=== PATIENT | female | born 1980 | race Two or more races ===

== ENCOUNTER 2018-08-13 12:19 | Emergency (ER) | payer MEDICAID ==
[~2018-08-13] VITALS: Ht 167.6 cm; Wt 80.0 kg
[2018-08-13] MEDS ORDERED: OXYCODONE HCL/ACETAMINOPHEN 5/325MG TABLET PO ONE (13:00)
[2018-08-13] MEDS ORDERED: ONDANSETRON HCL 4MG/2ML INJ IV ONE (13:00)
[2018-08-13 14:43] VITALS: BP 122/87
[2018-08-13] MEDS ORDERED: METOCLOPRAMIDE HCL 10MG/2ML VIAL IV ONE (14:45)
== END 2018-08-13 16:17 | disposition home or self-care (01) ==
LOC: ER 12:19
DX: S09.90XA Unspecified injury of head, initial encounter (principal); F07.81 Postconcussional syndrome; F17.200 Nicotine dependence, unspecified, uncomplicated; W01.0XXA Fall on same level from slipping, tripping and stumbling without subsequent striking against object, initial encounter; Y93.89 Activity, other specified; Y92.89 Other specified places as the place of occurrence of the external cause; Y99.8 Other external cause status
CPT/HCPCS: 70450; 96374; 96375; 99284; J2405; J2765

== ENCOUNTER 2021-04-30 19:38 | Inpatient (IN) | payer MEDICAID, OTHER ==
[~2021-04-30] VITALS: Ht 154.9 cm; Wt 63.5 kg
[2021-04-30] MEDS ORDERED: SODIUM CHLORIDE 0.9% 1,000 ML IV ONE (22:45)
[2021-04-30 23:15] LABS: BASOPHILS % 1.7 % (0.0-2.0); EOSINOPHILS % 2.2 % (0.0-5.0); LYMPHOCYTES % 33.6 % (20.0-50.0); MEAN CORPUSCULAR HEMOGLOBIN 28.1 pg (28.0-32.0); MEAN CORPUSCULAR VOLUME 82.9 fL (81.0-99.0); MEAN PLATELET VOLUME 6.7 fl (7.4-10.4); MONOCYTES % 6.5 % (2.0-8.0); PLATELET 570 x1000/uL (130-400); RED CELL DISTRIBUTION WIDTH 14.1 % (11.6-14.6)
[2021-04-30 23:19] LABS: CHLORIDE 106 mEq/L (98-107)
[2021-04-30 23:29] LABS: B-HCG QUANTITATIVE < 1 mIU/mL (<3); HCG SCREEN NEGATIVE
[2021-04-30 23:37] LABS: HEMOGLOBIN. 6.7 g/dL (12.0-16.0)
[2021-04-30 23:38] LABS: HEMATOCRIT. 19.9 % (36.0-48.0)
[2021-05-01] VITALS (15 sets, daily range): BP systolic 94–123; BP diastolic 34–62
[2021-05-01] MEDS ORDERED: CEFTRIAXONE 1 G PREMIX 50 ML IV ONE (02:45)
[2021-05-01] MEDS ORDERED: METRONIDAZOLE 500 MG PREMIX 100 ML IV ONE (02:45)
[2021-05-01] MEDS ORDERED: AZITHROMYCIN 500 MG TABLET PO ONE (02:45)
[2021-05-01 06:57] LABS: CLARITY URINE TURBID (CLEAR); COLOR URINE RED (YELLOW); KETONES URINE NEGATIVE (NEGATIVE); LEUKOCYTE ESTERASE URINE 2+ (NEGATIVE); NITRITE URINE POSITIVE (NEGATIVE); OCCULT BLOOD URINE 2+ (NEGATIVE); PROTEIN URINE 3+ (NEGATIVE); SPECIFIC GRAVITY URINE 1.025 (1.005-1.030); UROBILINOGEN URINE 0.2 E.U./dL (0.2-1.0)
[2021-05-01] MEDS ORDERED: NALOXONE HCL 0.4MG/ML VIAL IV PRN (11:15)
[2021-05-01] MEDS: ACETAMINOPHEN 325MG TABLET PO PRN (11:31)
[2021-05-01] MEDS ORDERED: INFLUENZA VACCINE 05/PF 0.5 ML SYRINGE IM ONE (11:45)
[2021-05-01] MEDS ORDERED: PNEUMOCOCCAL 23-VAL P-SAC VAC 0.5 ML IM ONE (11:45)
[2021-05-01 12:03] LABS: HEMATOCRIT 16.5 % (36.0-48.0); HEMOGLOBIN 5.5 g/dL (12.0-16.0)
[2021-05-01] MEDS: HYDROCODONE/ACETAMINOPHEN 5/325MG TABLET PO PRN (13:43)
[2021-05-01 16:18] LABS: HEMATOCRIT 18.1 % (36.0-48.0); HEMOGLOBIN 6.1 g/dL (12.0-16.0)
[2021-05-01 23:39] LABS: HEMATOCRIT 22.4 % (36.0-48.0); HEMOGLOBIN 7.8 g/dL (12.0-16.0)
[2021-05-02] VITALS: BP 122/55
[2021-05-02] MEDS ORDERED: CEFTRIAXONE 1,000 MG in DEXTROSE 5% WATER 50 ML IV SCH (03:00)
[2021-05-02 04:00] VITALS: BP 101/50
[2021-05-02] MEDS: ACETAMINOPHEN 325MG TABLET PO PRN (04:05)
[2021-05-02 06:42] LABS: BASOPHILS % 1.6 % (0.0-2.0); EOSINOPHILS % 2.5 % (0.0-5.0); HEMOGLOBIN. 8.7 g/dL (12.0-16.0); LYMPHOCYTES % 23.5 % (20.0-50.0); MEAN CORPUSCULAR HEMOGLOBIN 28.8 pg (28.0-32.0); MEAN CORPUSCULAR VOLUME 82.3 fL (81.0-99.0); MEAN PLATELET VOLUME 7.1 fl (7.4-10.4); MONOCYTES % 7.1 % (2.0-8.0); NEUTROPHILS % 65.3 % (40.0-76.0); PLATELET 426 x1000/uL (130-400); RED BLOOD CELL COUNT 3.04 mill/uL (4.2-5.4); RED CELL DISTRIBUTION WIDTH 14.2 % (11.6-14.6)
[2021-05-02 08:00] VITALS: BP 127/64
[2021-05-02 09:51] LABS: CHLORIDE 107 mEq/L (98-107)
[2021-05-02] MEDS: HYDROCODONE/ACETAMINOPHEN 5/325MG TABLET PO PRN (11:03)
[2021-05-02 12:00] VITALS: BP 101/46
[2021-05-02] MEDS ORDERED: LEVO500T89 MT (12:28)
[2021-05-02 13:19] VITALS: BP 101/46
== END 2021-05-02 14:38 | disposition home or self-care (01) | DRG 463 ==
LOC: ER 19:38 → MICUSO 05-01 02:54 → 6WST 05-01 07:54
PROVIDERS: ADMIT Internal Medicine; ATTEND Internal Medicine
PROC: 30233N1 Transfusion of Nonautologous Red Blood Cells into Peripheral Vein, Percutaneous Approach (ICD-10-PCS; principal; 2021-05-01)
DX: N39.0 Urinary tract infection, site not specified (principal); N73.0 Acute parametritis and pelvic cellulitis; N93.9 Abnormal uterine and vaginal bleeding, unspecified; D64.9 Anemia, unspecified; F15.10 Other stimulant abuse, uncomplicated; F20.9 Schizophrenia, unspecified; Z20.822 Contact with and (suspected) exposure to COVID-19; F43.10 Post-traumatic stress disorder, unspecified; F17.210 Nicotine dependence, cigarettes, uncomplicated; Z88.1 Allergy status to other antibiotic agents
CPT/HCPCS: 36415; 71045; 76830; 76856; 80048; 80053; 81003; 84484; 84702; 84703; 85014; 85018; 85025; 86850; 86900; 86920; 87210; 87426; 90686; 90732; 93005; 99285; J0696; J3490; J7030; J7040; J7060; P9016